=== PATIENT | female | born 2000 | race Caucasian/White ===

== ENCOUNTER 2022-04-26 18:39 | Emergency (ER) | payer OTHER, BC ==
[2022-04-26] MEDS ORDERED: Bacitracin 1 PK ONE (19:59)
[2022-04-26] MEDS ORDERED: HYDROcodone/Acetaminophen 5/325 mg Tablet ONE (20:22)
[2022-04-26] MEDS ORDERED: Sulfameth/Trimethoprim DS 800-160mg TAB ONE (20:22)
== END 2022-04-26 20:24 | disposition home or self-care (01) ==
LOC: CSHERS 18:39
DX: S80.812A Abrasion, left lower leg, initial encounter (principal); L03.116 Cellulitis of left lower limb; V86.99XA Unspecified occupant of other special all-terrain or other off-road motor vehicle injured in nontraffic accident, initial encounter
CPT/HCPCS: 99283

== ENCOUNTER 2024-09-17 08:28 | Emergency (ER) | payer BC ==
[2024-09-17] MEDS ORDERED: Morphine 4 MG/ML VIAL ONE (09:18)
[2024-09-17 09:38] LABS: #Basophils 0.05 10x3/uL (0.0-0.2); #Eosinophils 0.44 10x3/uL (0.0-0.5); #Monocytes 0.58 10x3/uL (0.0-1.1); #Neutrophils 5.02 10x3/uL (1.5-8.4); %Basophils 0.6 % (0.0-2.0); %Eosinophils 5.2 % (0.0-6.0); %Lymphocytes 27.5 % (18.0-47.0); %Monocytes 6.9 % (0.0-10.0); %Neutrophils 59.6 % (40.0-75.0); Hematocrit 37.6 % (34.9-44.5); Hemoglobin 13.2 g/dL (12.0-15.5); Mean Corpuscular HGB CONC 35.1 g/dL (32.0-36.0); Mean Corpuscular Hemoglobin 30.8 pg (27.0-33.0); Mean Corpuscular Volume 87.6 fL (81.6-98.3); Mean Platelet Volume 9.5 fL (7.4-10.4); Platelet Count 271 10x3/uL (150-450); RBC Distribution Width 12.6 % (11.5-14.5); Red Blood Cell (RBC) Count 4.29 10x6/uL (3.90-5.03); White Blood Cell (WBC) Count 8.43 10x3/uL (3.5-10.5)
[2024-09-17 09:46] LABS: BHCG - Serum POSITIVE (NEGATIVE); Pregs Control Background? CLEAR/WHITE (CLR/WHITE); Pregs Control Bar Appear? YES (CONTROL BAR)
[2024-09-17 09:55] LABS: ALT (SGPT) 38 U/L (Less than 34); AST (SGOT) 31 U/L (11-34); Albumin 4.3 g/dL (3.1-4.5); Alkaline Phosphatase 64 U/L (40-110); Anion Gap 14 mmol/L (10-20); BUN (Urea Nitrogen) 9 mg/dL (7.0-18.7); Bilirubin, Total 0.4 mg/dL (0.3-1.2); Calc. Creatinine Clearance 0 mL/min (70-130); Calcium 8.8 mg/dL (7.8-10.44); Carbon Dioxide 21 mmol/L (22-29); Chloride 108 mmol/L (98-107); Estimated GFR 126; Glucose 93 mg/dL (70-105); Lipase 21 U/L (8-78); Potassium 3.9 mmol/L (3.5-5.1); Protein, Total 7.3 g/dL (6.0-8.3); Sodium 139 mmol/L (136-145)
[2024-09-17 11:06] LABS: Bilirubin Neg (Negative); Blood, Urine 250 (Negative); Clarity Clear (Clear); Glucose, Urine (Dipstick) Normal (Negative); Ketone, Urine Negative (Negative); Leukocyte 25 (Negative); Nitrite Negative (Negative); Protein, Urine (Dipstick) 30 mg/dl (Neg-Trace); Specific Gravity, Urine 1.025 (1.005-1.030)
[2024-09-17 11:22] LABS: Bacteria/HPF None Seen HPF (None Seen); CAUTI Indications for Culture Pelvic or flank pain; Mucous/LPF Rare LPF (<2+); Squamous Epithelial 0-3 HPF (0-3); WBC/HPF 0-3 HPF (0-3)
[2024-09-17 11:23] LABS: Urine Culture Reflex No No
== END 2024-09-17 13:57 | disposition home or self-care (01) ==
LOC: CSHERS 08:28
DX: O20.9 Hemorrhage in early pregnancy, unspecified (principal)
CPT/HCPCS: 36415; 76856; 80053; 81001; 83690; 83735; 84702; 84703; 85025; 86850; 86900; 86901; 90384; 96372; 96374; J2270

== ENCOUNTER 2024-09-29 10:59 | Outpatient (CLI) | payer BC | END 2024-09-29 11:00 | disposition home or self-care (01) | LOC: CSHLAB 10:59 | PROVIDERS: ATTEND Student in an Organized Health Care Education/Training Program | DX: O00.90 Unspecified ectopic pregnancy without intrauterine pregnancy (principal) | CPT/HCPCS: 84702 ==